=== PATIENT | female | born 1960 | race Caucasian/White ===

== ENCOUNTER → 2021-06-18 | Outpatient (CLI) | payer OTHER | LOC: EXRD 14:45 | DX: M54.6 Pain in thoracic spine (principal); M47.814 Spondylosis without myelopathy or radiculopathy, thoracic region | CPT/HCPCS: 72070 ==

== ENCOUNTER → 2021-07-30 | Outpatient (CLI) | payer OTHER | LOC: KOH-I 16:00 | DX: S22.009A Unspecified fracture of unspecified thoracic vertebra, initial encounter for closed fracture (principal); M40.204 Unspecified kyphosis, thoracic region | CPT/HCPCS: 72128 ==

== ENCOUNTER → 2021-10-19 | Outpatient (CLI) | payer OTHER | LOC: KOH-I 15:33 | DX: F17.210 Nicotine dependence, cigarettes, uncomplicated (principal); R91.8 Other nonspecific abnormal finding of lung field | CPT/HCPCS: 71271 ==

== ENCOUNTER → 2022-02-11 | Outpatient (CLI) | payer OTHER | LOC: EXRD 01-21 14:00 | DX: M81.0 Age-related osteoporosis without current pathological fracture (principal) | CPT/HCPCS: 77080 ==